=== PATIENT | male | born 1985 | race Caucasian/White ===

== ENCOUNTER 2020-07-18 19:42 | Emergency (ER) | payer SELFPAY ==
[2020-07-18 19:53] VITALS: BP 141/72; PULSE 78; TEMP 98.3; BMI 24.4
[2020-07-18] MEDS ORDERED: IBUPROFEN 600 MG TABLET (FP) PO ONE ×2 (20:29→20:46)
[2020-07-18 21:08] LABS: PH,URINE 5.5 (5.0-8.0); URINE APPEARANCE CLEAR; URINE BILIRUBIN NEGATIVE (NEGATIVE); URINE COLOR YELLOW; URINE GLUCOSE (UA) NEGATIVE (NEGATIVE); URINE KETONE 1+ (NEGATIVE); URINE LEUK ESTERASE NEGATIVE (NEGATIVE); URINE NITRITE NEGATIVE (NEGATIVE); URINE PROTEIN NEGATIVE (NEGATIVE)
== END 2020-07-18 21:00 | disposition home or self-care (01) ==
LOC: JER 19:42
DX: M25.571 Pain in right ankle and joints of right foot (principal)
CPT/HCPCS: 81003; 87086; 99284-25